=== PATIENT | male | born 1955 | race Caucasian/White ===

== ENCOUNTER 2020-01-08 04:49 | Emergency (ER) | payer MEDICARE ==
[~2020-01-08] VITALS: Ht 175.3 cm; Wt 111.0 kg
[2020-01-08 04:53] VITALS: BP 155/84
--- NOTE | 2020-01-08 05:09 | NUR ---
PA AT BEDSIDE TO ASSESS PT
[2020-01-08] MEDS ORDERED: KETOROLAC 30 MG/1 ML ONE (05:16)
[2020-01-08] MEDS ORDERED: KETOROLAC 30 MG/1 ML IM ONE (05:30)
== END 2020-01-08 07:39 | disposition home or self-care (01) ==
LOC: ED 06:40
DX: S83.207A Unspecified tear of unspecified meniscus, current injury, left knee, initial encounter (principal); I10 Essential (primary) hypertension; J44.9 Chronic obstructive pulmonary disease, unspecified; Z86.718 Personal history of other venous thrombosis and embolism; X58.XXXA Exposure to other specified factors, initial encounter; Y92.89 Other specified places as the place of occurrence of the external cause; Y99.8 Other external cause status; Y93.89 Activity, other specified
CPT/HCPCS: 93971; 96372; 99284; J1885